=== PATIENT | female | born 1950 | race Caucasian/White ===

== ENCOUNTER 2018-12-03 10:48 | Outpatient (CLI) | payer MEDICARE | END 2018-12-03 10:49 | disposition home or self-care (01) | LOC: RT 10:48 | PROVIDERS: ATTEND Orthopaedic Surgery | DX: Z01.810 Encounter for preprocedural cardiovascular examination (principal); M72.0 Palmar fascial fibromatosis [Dupuytren] | CPT/HCPCS: 93005 ==

== ENCOUNTER 2019-01-10 14:39 | Outpatient (CLI) | payer MEDICARE ==
--- NOTE | 2019-01-10 16:25 | CARDIAC PROCEDURE NOTE ---
DATE OF SERVICE: 01/10/2019 Physician: Susana Dodd MD, [facility] INDICATIONS: Pre-operative clearance, abnormal EKG, history of paroxysmal atrial fibrillation in 2007. CARDIAC RISK FACTORS: Postmenopausal status, previous ex-smoker. . PROCEDURE: After signing informed consent, the patient underwent a Gregory- protocol treadmill stress test with Echo imaging. RESTING HEART RATE: 89. PEAK HEART RATE: 140 (93% predicted maximum heart rate for age). RESTING BLOOD PRESSURE: 95/70. PEAK BLOOD PRESSURE: 141/60. The patient exercised for 4.5 minutes on a Gregory-protocol treadmill stress test. She achieved a peak heart rate of 140 (93% PMHR) and 6.3 METS. The patient had mild shortness of breath. She had no chest pain. EKG AT REST: Normal sinus rhythm, RSR' in V1 and V2, inverted T waves in leads III, and in V2 - V5. EKG AT PEAK: New flattening/uprighting of T waves in leads V3 - V5, unchanged in lead III. SUMMARY 1. Abnormal resting EKG. 2. Pseudo-normalization of T waves with exercise, at an adequate level of stress (suspicious for ischemia). 3. Echo images reported separately. CC: Sima Schmidt MD cc: Uma Hu MD TD: 01/10/2019 16:05 MTDD
== END 2019-01-10 14:40 | disposition home or self-care (01) ==
LOC: DI 14:39
PROVIDERS: ATTEND Internal Medicine Cardiovascular Disease
DX: Z01.810 Encounter for preprocedural cardiovascular examination (principal); I48.0 Paroxysmal atrial fibrillation; Z78.0 Asymptomatic menopausal state; Z87.891 Personal history of nicotine dependence; R94.31 Abnormal electrocardiogram [ECG] [EKG]
CPT/HCPCS: 93350

== ENCOUNTER 2019-06-06 13:51 | Outpatient (CLI) | payer MEDICARE ==
--- NOTE | 2019-06-06 15:42 | XRAY Report ---
Reason: WHEEZING R06.2 Procedure Date: 06/06/2019 Accession Number: [id number] / [id number] Procedure: XRS - Chest 2 View X-Ray CPT Code: 67136 FULL RESULT: EXAM: CHEST RADIOGRAPHY EXAM DATE: 06/06/2019 02:07 PM. CLINICAL HISTORY: Wheezing, chronic cough. COMPARISON: None. TECHNIQUE: 2 views. FINDINGS: Lungs/Pleura: No focal opacities evident. No pleural effusion. No pneumothorax. Normal volumes. Mediastinum: Heart and mediastinal contours are unremarkable. Other: None. IMPRESSION: Normal 2-view chest radiography. RADIA
== END 2019-06-06 13:52 | disposition home or self-care (01) ==
LOC: DI.S 13:51
PROVIDERS: ATTEND Nurse Practitioner Family
DX: R06.2 Wheezing (principal)
CPT/HCPCS: 71046

== ENCOUNTER 2019-07-03 11:18 | Outpatient (CLI) | payer MEDICARE ==
--- NOTE | 2019-07-04 08:15 | DEXA Report ---
Reason: DISORDER OF BONE Procedure Date: 07/03/2019 Accession Number: [id number] / [id number] Procedure: DEX - Dexa Spine and/or Hip CPT Code: Final Report FULL RESULT: EXAM: Dexa Spine and/or Hip DATE: 07/03/2019 11:38 AM CLINICAL HISTORY: DISORDER OF BONE TECHNIQUE: Dual energy x-ray absorptiometry (DXA) was performed on a Modern M[employer] System. Regions measured are the AP Spine, femoral neck, and if needed forearm. COMPARISON: None. In accordance with the International Society for Clinical Densitometry (ISCD) guidelines, data from previous exams may be reanalyzed using current recommendations and techniques. This is done to allow a more accurate basis for comparison with the current study. FINDINGS: The data for the lumbar spine is as follows: BMD (g/cm/cm) T-SCORE Z-SCORE REGION L1 1.204 0.6 1.9 L2 1.302 0.9 2.2 L3 1.331 1.1 2.4 L4 1.504 2.5 3.8 TOTAL 1.342 1.3 2.7 NOTE: All evaluable vertebrae are used for classification The data for the hip is as follows: BMD (g/cm/cm) T-SCORE Z-SCORE REGION Neck 0.805 -1.7 -0.2 TOTAL 0.908 -0.8 0.5 NOTE: The femoral neck or total proximal femur, whichever is lowest, is used for classification. IMPRESSION: THE WHO CLASSIFICATION BASED ON THE INTERNATIONAL REFERENCE STANDARD IS OSTEOPENIA. THE FRACTURE RISK IS INCREASED. RECOMMENDATION: Patients with diagnosis of osteoporosis or osteopenia should have regular bone mineral density assessment. For those eligible for Medicare, routine testing is allowed once every 2 years. Testing frequency can be increased for patients who have rapidly progressing disease or for those who are receiving medical therapy to restore bone mass. COMMENT: World Health Organization (WHO) definitions for osteoporosis and osteopenia: NORMAL BMD: T-score at -1.0 or higher, fracture risk is low OSTEOPENIA BMD: T-score between -1.0 and -2.5, fracture risk is increased. OSTEOPOROSIS BMD: T-score at -2.5 or lower, fracture risk is high. National Osteoporosis Foundation recommends: 1. Obtain adequate dietary calcium (at least 1200 mg per day) and vitamin D (400-800 international units per day). 2. Participate, as appropriate, in regular weightbearing and muscle-strengthening exercise. 3. Avoid tobacco use and reduce alcohol and caffeine intake. 4. For more detailed information see the website at www.NOF.org.
== END 2019-07-03 11:19 | disposition home or self-care (01) ==
LOC: DI 11:18
PROVIDERS: ATTEND Internal Medicine
DX: M85.89 Other specified disorders of bone density and structure, multiple sites (principal)
CPT/HCPCS: 77080

== ENCOUNTER 2019-09-02 15:04 | Outpatient (CLI) | payer MEDICARE | END 2019-09-02 15:05 | disposition home or self-care (01) | LOC: RT 15:04 | PROVIDERS: ATTEND Orthopaedic Surgery | DX: Z01.810 Encounter for preprocedural cardiovascular examination (principal) | CPT/HCPCS: 93005 ==